=== PATIENT | male | born 1975 | race Caucasian/White ===

== ENCOUNTER 2017-03-10 13:58 | Emergency (ER) | payer SELFPAY ==
[~2017-03-10] VITALS: Ht 177.8 cm; Wt 80.0 kg
[2017-03-10 14:26] LABS: BASOPHILS % 0.6 % (0.0-2.0); EOSINOPHILS % 3.6 % (0.0-5.0); HEMATOCRIT. 40.5 % (42.0-52.0); HEMOGLOBIN. 13.6 g/dL (14.0-18.0); MEAN CORPUSCULAR HEMOGLOBIN 27.3 pg (28.0-32.0); MEAN CORPUSCULAR VOLUME 81.6 fL (80.0-94.0); MEAN PLATELET VOLUME 8.1 fl (7.4-10.4); MONOCYTES % 5.2 % (2.0-8.0); NEUTROPHILS % 38.6 % (40.0-76.0); PLATELET 151 x1000/uL (130-400); RED BLOOD CELL COUNT 4.97 mill/uL (4.7-6.1); RED CELL DISTRIBUTION WIDTH 15.9 % (11.6-14.6)
[2017-03-10 14:42] LABS: CARBON DIOXIDE 22 mEq/L (21-32); CHLORIDE 109 mEq/L (98-107)
[2017-03-10 14:58] LABS: ETHANOL BLOOD 437 mg/dL
[2017-03-10 15:05] LABS: BG BASE EXCESS -3.7 mmol/L (-2.0-2.0); BG CARBOXYHEMOGLOBIN 1.1 % (0.5-1.5); BG DEOXYHEMOGLOBIN 4.4 % (0.0-5.0); BG FRACTION INSPIRED OXYGEN 21; BG HCO3 ACT 23.3 mmol/L (22.0-26.0); BG METHEMOGLOBIN 0.1 % (0.0-1.5); BG OXYGEN SATURATION 95.5 % (92.0-98.5); BG OXYHEMOGLOBIN 94.4 % (94.0-97.0); BG PCO2 49.9 mmHg (35.0-45.0); BG PH 7.288 (7.350-7.450); BG PO2 90.2 mmHg (75.0-100.0); BG SAMPLE SITE RIGHT BRACHIAL; BG VENT MODE ROOM AIR
[2017-03-10 15:41] LABS: CLARITY URINE CLEAR (CLEAR); COLOR URINE YELLOW (YELLOW); GLUCOSE URINE NEGATIVE (NEGATIVE); KETONES URINE NEGATIVE (NEGATIVE); LEUKOCYTE ESTERASE URINE NEGATIVE (NEGATIVE); NITRITE URINE NEGATIVE (NEGATIVE); OCCULT BLOOD URINE 1+ (NEGATIVE); PROTEIN URINE NEGATIVE (NEGATIVE); SPECIFIC GRAVITY URINE 1.009 (1.005-1.030); UROBILINOGEN URINE 0.2 E.U./dL (0.2-1.0)
[2017-03-10 15:59] LABS: *AMPHETAMINES SCREEN URINE PRESUMTIVE POSITIVE (NEGATIVE); *BARBITURATES SCREEN URINE NEGATIVE (NEGATIVE); *BENZODIAZEPINES SCREEN URINE NEGATIVE (NEGATIVE); *COCAINE SCREEN URINE NEGATIVE (NEGATIVE); CANNABINOID URINE SCREEN NEGATIVE (NEGATIVE); METHADONE URINE SCREEN NEGATIVE (NEGATIVE); OPIATES URINE SCREEN NEGATIVE (NEGATIVE); PHENCYCLIDINE URINE SCREEN NEGATIVE (NEGATIVE)
[2017-03-10 17:18] VITALS: BP 104/59
== END 2017-03-10 19:37 | disposition home or self-care (01) ==
LOC: EDBD 14:05 → ER 14:05
DX: T51.0X1A Toxic effect of ethanol, accidental (unintentional), initial encounter (principal); T43.621A Poisoning by amphetamines, accidental (unintentional), initial encounter; R41.82 Altered mental status, unspecified; F91.9 Conduct disorder, unspecified; Z78.1 Physical restraint status; Y92.488 Other paved roadways as the place of occurrence of the external cause
CPT/HCPCS: 36415; 36600; 70450; 80053; 80305; 80307; 80329; 81001; 82375; 82805; 82962; 85025; 99285; G0482; A4315

== ENCOUNTER 2017-03-11 06:37 | Emergency (ER) | payer MEDICAID ==
[~2017-03-11] VITALS: Ht 172.7 cm; Wt 68.0 kg
[2017-03-11 08:17] LABS: BASOPHILS % 0.7 % (0.0-2.0); EOSINOPHILS % 2.2 % (0.0-5.0); HEMATOCRIT. 44.5 % (42.0-52.0); HEMOGLOBIN. 15.1 g/dL (14.0-18.0); MEAN CORPUSCULAR HEMOGLOBIN 27.6 pg (28.0-32.0); MEAN CORPUSCULAR VOLUME 81.4 fL (80.0-94.0); MEAN PLATELET VOLUME 8.6 fl (7.4-10.4); MONOCYTES % 5.1 % (2.0-8.0); PLATELET 171 x1000/uL (130-400); RED BLOOD CELL COUNT 5.46 mill/uL (4.7-6.1); RED CELL DISTRIBUTION WIDTH 16.2 % (11.6-14.6)
[2017-03-11 09:01] LABS: CHLORIDE 107 mEq/L (98-107)
[2017-03-11 09:06] LABS: CARBON DIOXIDE 26 mEq/L (21-32); ETHANOL BLOOD 139 mg/dL
[2017-03-11 10:55] VITALS: BP 116/76
== END 2017-03-11 10:58 | disposition home or self-care (01) ==
LOC: ER 06:37
DX: R45.851 Suicidal ideations (principal); F32.9 Major depressive disorder, single episode, unspecified
CPT/HCPCS: 36415; 80048; 85025; 99284; G0482

== ENCOUNTER 2017-09-16 04:02 | Emergency (ER) | payer MEDICAID | END 2017-09-16 05:37 | disposition left against medical advice (07) | LOC: ER 04:02 | DX: Z53.21 Procedure and treatment not carried out due to patient leaving prior to being seen by health care provider (principal) ==

== ENCOUNTER 2020-05-27 11:09 | Emergency (ER) | payer MEDICAID ==
[~2020-05-27] VITALS: Ht 185.4 cm; Wt 75.0 kg
[2020-05-27] MEDS ORDERED: ONDA4TAB5 MT (11:44)
[2020-05-27] MEDS ORDERED: ONDANSETRON 4MG ODT PO ONE (11:45)
[2020-05-27] MEDS ORDERED: LORAZEPAM 1MG TABLET PO ONE (11:45)
[2020-05-27] MEDS ORDERED: L25 PO ×3 (12:09→12:14)
[2020-05-27 12:17] VITALS: BP 121/86
== END 2020-05-27 12:22 | disposition home or self-care (01) ==
LOC: ER 11:52
DX: F15.13 Other stimulant abuse with withdrawal (principal); F15.180 Other stimulant abuse with stimulant-induced anxiety disorder; R11.0 Nausea
CPT/HCPCS: 99283; Q0162

== ENCOUNTER 2020-08-03 21:45 | Emergency (ER) | payer MEDICAID, OTHER ==
[~2020-08-03] VITALS: Ht 172.7 cm; Wt 73.0 kg
[~2020-08-03 21:45] MED LIST: L25 PO
[2020-08-03] MEDS ORDERED: LORAZEPAM 1MG TABLET PO ONE (23:15)
[2020-08-03 23:30] VITALS: BP 130/90
[2020-08-03 23:34] LABS: EOSINOPHILS % 0.4 % (0.0-5.0); HEMATOCRIT. 40.9 % (42.0-52.0); HEMOGLOBIN. 14.2 g/dL (14.0-18.0); LYMPHOCYTES % 23.8 % (20.0-50.0); MEAN CORPUSCULAR HEMOGLOBIN 28.9 pg (28.0-32.0); MEAN CORPUSCULAR VOLUME 83.1 fL (80.0-94.0); MEAN PLATELET VOLUME 8.2 fl (7.4-10.4); MONOCYTES % 7.2 % (2.0-8.0); NEUTROPHILS % 67.6 % (40.0-76.0); PLATELET 226 x1000/uL (130-400); RED BLOOD CELL COUNT 4.92 mill/uL (4.7-6.1); RED CELL DISTRIBUTION WIDTH 15.6 % (11.6-14.6)
[2020-08-03 23:39] LABS: CHLORIDE 103 mEq/L (98-107)
[2020-08-03] MEDS ORDERED: ONDANSETRON 4MG ODT PO ONE (23:45)
[2020-08-03] MEDS ORDERED: GABAPENTIN 300MG CAPSULE PO SCH (23:45)
[2020-08-04 00:44] LABS: CLARITY URINE CLEAR (CLEAR); COLOR URINE YELLOW (YELLOW); KETONES URINE NEGATIVE (NEGATIVE); LEUKOCYTE ESTERASE URINE NEGATIVE (NEGATIVE); NITRITE URINE NEGATIVE (NEGATIVE); OCCULT BLOOD URINE NEGATIVE (NEGATIVE); PROTEIN URINE NEGATIVE (NEGATIVE); SPECIFIC GRAVITY URINE 1.008 (1.005-1.030); UROBILINOGEN URINE 0.2 E.U./dL (0.2-1.0)
[2020-08-04] MEDS ORDERED: ONDA4TAB11 PO (00:48)
[2020-08-04] MEDS ORDERED: GABA-290 MT (00:48)
[2020-08-04] MEDS ORDERED: LORA-250 MT (00:48)
== END 2020-08-04 01:15 | disposition home or self-care (01) ==
LOC: ER 21:45
DX: F13.239 Sedative, hypnotic or anxiolytic dependence with withdrawal, unspecified (principal); F10.139 Alcohol abuse with withdrawal, unspecified; R00.0 Tachycardia, unspecified; Y90.9 Presence of alcohol in blood, level not specified
CPT/HCPCS: 36415; 80053; 81003; 85025; 93005; 99284; Q0162

== ENCOUNTER 2020-12-29 00:12 | Emergency (ER) | payer MEDICAID, OTHER ==
[~2020-12-29] VITALS: Ht 172.7 cm; Wt 73.0 kg
[~2020-12-29 00:12] MED LIST changes: +GABA-290 MT; +LORA-250 MT; +ONDA4TAB11 PO
[2020-12-29 00:31] VITALS: BP 149/104
[2020-12-29] MEDS ORDERED: ASPIRIN 81MG TABLET PO ONE (01:00)
[2020-12-29] MEDS ORDERED: SODIUM CHLORIDE 0.9% 1,000 ML IV ONE (01:00)
[2020-12-29 01:47] LABS: BASOPHILS % 0.8 % (0.0-2.0); EOSINOPHILS % 0.5 % (0.0-5.0); HEMATOCRIT. 39.5 % (42.0-52.0); HEMOGLOBIN. 13.4 g/dL (14.0-18.0); LYMPHOCYTES % 30.2 % (20.0-50.0); MEAN CORPUSCULAR HEMOGLOBIN 27.3 pg (28.0-32.0); MEAN CORPUSCULAR VOLUME 80.4 fL (80.0-94.0); MEAN PLATELET VOLUME 7.9 fl (7.4-10.4); MONOCYTES % 5.2 % (2.0-8.0); NEUTROPHILS % 63.3 % (40.0-76.0); PLATELET 179 x1000/uL (130-400); RED BLOOD CELL COUNT 4.91 mill/uL (4.7-6.1); RED CELL DISTRIBUTION WIDTH 16.2 % (11.6-14.6)
[2020-12-29 01:51] LABS: CHLORIDE 109 mEq/L (98-107)
[2020-12-29 01:55] LABS: ETHANOL BLOOD 156 mg/dL
[2020-12-29 01:57] LABS: D-DIMER 0.24 mg/L FEU (<0.50); PARTIAL THROMBOPLASTIN TIME 24.1 sec (23.4-31.0); PROTHROMBIN TIME 10.4 sec (9.6-11.0)
[2020-12-29] MEDS ORDERED: ASPIRIN 325MG TABLET PO NR (02:00)
[2020-12-29 03:54] LABS: CLARITY URINE CLEAR (CLEAR); COLOR URINE YELLOW (YELLOW); KETONES URINE NEGATIVE (NEGATIVE); LEUKOCYTE ESTERASE URINE NEGATIVE (NEGATIVE); NITRITE URINE NEGATIVE (NEGATIVE); OCCULT BLOOD URINE NEGATIVE (NEGATIVE); PROTEIN URINE NEGATIVE (NEGATIVE); UROBILINOGEN URINE 0.2 E.U./dL (0.2-1.0)
[2020-12-29 04:04] LABS: *AMPHETAMINES SCREEN URINE PRESUMTIVE POSITIVE (NEGATIVE); *BARBITURATES SCREEN URINE NEGATIVE (NEGATIVE); *BENZODIAZEPINES SCREEN URINE NEGATIVE (NEGATIVE); *COCAINE SCREEN URINE NEGATIVE (NEGATIVE); METHADONE URINE SCREEN NEGATIVE (NEGATIVE); OPIATES URINE SCREEN NEGATIVE (NEGATIVE)
[2020-12-29 04:06] LABS: CANNABINOID URINE SCREEN NEGATIVE (NEGATIVE); PHENCYCLIDINE URINE SCREEN NEGATIVE (NEGATIVE)
== END 2020-12-29 04:33 | disposition home or self-care (01) ==
LOC: ER 00:37
DX: R07.89 Other chest pain (principal); R20.0 Anesthesia of skin; F10.10 Alcohol abuse, uncomplicated; F17.200 Nicotine dependence, unspecified, uncomplicated; F15.10 Other stimulant abuse, uncomplicated; F13.10 Sedative, hypnotic or anxiolytic abuse, uncomplicated; I10 Essential (primary) hypertension; Z86.73 Personal history of transient ischemic attack (TIA), and cerebral infarction without residual deficits; Z86.59 Personal history of other mental and behavioral disorders; Y90.6 Blood alcohol level of 120-199 mg/100 ml
CPT/HCPCS: 36415; 71045; 80053; 80305; 80320; 81003; 83690; 83880; 84484; 85025; 85379; 85610; 85730; 93005; 96360; 96361; 99285; J7030; G0480

== ENCOUNTER 2021-06-28 14:21 | Emergency (ER) | payer MEDICAID, OTHER ==
[~2021-06-28] VITALS: Ht 175.3 cm; Wt 75.0 kg
[2021-06-28 14:25] VITALS: BP 129/89
[2021-06-28] MEDS ORDERED: HYDR-3735 MT (14:44)
[2021-06-28] MEDS ORDERED: HYDROXYZINE 25MG TABLET PO ONE (14:45)
[2021-06-28] MEDS ORDERED: ONDANSETRON 4MG ODT PO ONE (14:45)
== END 2021-06-28 16:41 | disposition left against medical advice (07) ==
LOC: ER 14:21
DX: F15.23 Other stimulant dependence with withdrawal (principal)
CPT/HCPCS: 99283; Q0162

== ENCOUNTER 2021-06-28 18:19 | Emergency (ER) | payer MEDICAID ==
[~2021-06-28 18:19] MED LIST changes: +HYDR-3735 MT
== END 2021-06-28 20:29 | disposition left against medical advice (07) ==
LOC: ER 18:19
DX: Z53.21 Procedure and treatment not carried out due to patient leaving prior to being seen by health care provider (principal)

== ENCOUNTER 2022-01-27 23:50 | Emergency (ER) | payer MEDICAID ==
[~2022-01-27] VITALS: Ht 172.7 cm; Wt 73.6 kg
[2022-01-28] MEDS ORDERED: HYDROXYZINE 25MG TABLET PO ONE (01:15)
[2022-01-28] MEDS ORDERED: IBUPROFEN 600MG TABLET PO ONE (01:30)
[2022-01-28] MEDS ORDERED: HYDROXYZINE 25MG TABLET PO NR (02:15)
[2022-01-28] MEDS ORDERED: IBUPROFEN 600MG TABLET PO NR (02:15)
[2022-01-28 02:19] LABS: BASOPHILS % 1.1 % (0.0-2.0); EOSINOPHILS % 1.6 % (0.0-5.0); HEMATOCRIT. 38.9 % (42.0-52.0); HEMOGLOBIN. 13.2 g/dL (14.0-18.0); LYMPHOCYTES % 28.6 % (20.0-50.0); MEAN CORPUSCULAR HEMOGLOBIN 27.5 pg (28.0-32.0); MEAN CORPUSCULAR VOLUME 80.8 fL (80.0-94.0); MEAN PLATELET VOLUME 8.5 fl (7.4-10.4); MONOCYTES % 11.3 % (2.0-8.0); NEUTROPHILS % 57.4 % (40.0-76.0); PLATELET 210 x1000/uL (130-400); RED BLOOD CELL COUNT 4.82 mill/uL (4.7-6.1); RED CELL DISTRIBUTION WIDTH 16.1 % (11.6-14.6)
[2022-01-28 02:31] LABS: CHLORIDE 104 mEq/L (98-107)
[2022-01-28 02:38] LABS: ETHANOL BLOOD 57 mg/dL
[2022-01-28 04:00] VITALS: BP 130/82
== END 2022-01-28 05:04 | disposition left against medical advice (07) ==
LOC: ER 23:50 → CANBEDREQ 01-28 18:01
DX: F11.23 Opioid dependence with withdrawal (principal); G40.909 Epilepsy, unspecified, not intractable, without status epilepticus; F15.10 Other stimulant abuse, uncomplicated; F10.129 Alcohol abuse with intoxication, unspecified; Y90.2 Blood alcohol level of 40-59 mg/100 ml
CPT/HCPCS: 36415; 80053; 80320; 85025; 93005; 99284; G0480

== ENCOUNTER 2022-07-31 20:18 | Emergency (ER) | payer MEDICAID, OTHER ==
[~2022-07-31] VITALS: Ht 172.7 cm; Wt 72.0 kg
[2022-07-31 20:25] VITALS: BP 135/91
== END 2022-08-01 03:04 | disposition home or self-care (01) ==
LOC: ER 20:18
DX: R56.9 Unspecified convulsions (principal); R51.9 Headache, unspecified; F15.10 Other stimulant abuse, uncomplicated
CPT/HCPCS: 99281

== ENCOUNTER 2023-03-02 04:12 | Emergency (ER) | payer MEDICAID, OTHER ==
[~2023-03-02] VITALS: Ht 172.7 cm; Wt 78.0 kg
[~2023-03-02 04:12] MED LIST changes: +ACET-2708 MT; +ISOP30DR11 OT; +NALO4SPR BOTHNSTRLS
[2023-03-02 04:16] VITALS: O2SAT 100
[2023-03-02 04:59] LABS: BASOPHILS % 0.9 % (0.0-2.0); EOSINOPHILS % 0.8 % (0.0-5.0); HEMATOCRIT. 40.3 % (42.0-52.0); HEMOGLOBIN. 12.9 g/dL (14.0-18.0); LYMPHOCYTES % 27.7 % (20.0-50.0); MEAN CORPUSCULAR HEMOGLOBIN 26.6 pg (28.0-32.0); MEAN CORPUSCULAR VOLUME 83.2 fL (80.0-94.0); MEAN PLATELET VOLUME 8.9 fl (7.4-10.4); MONOCYTES % 9.4 % (2.0-8.0); NEUTROPHILS % 61.2 % (40.0-76.0); PLATELET 225 x1000/uL (130-400); RED BLOOD CELL COUNT 4.84 mill/uL (4.7-6.1); RED CELL DISTRIBUTION WIDTH 16.4 % (11.6-14.6); WHITE BLOOD COUNT 6.4 x1000/uL (4.5-11.0)
[2023-03-02 05:10] LABS: CHLORIDE 110 mEq/L (98-107); POTASSIUM 4.1 mEq/L (3.5-5.1); SODIUM 141 mEq/L (136-145)
[2023-03-02 05:16] LABS: ACETAMINOPHEN <2 ug/mL ug/mL (10-30); ALANINE AMINOTRANSFERASE 36 IU/L (13-61); ALBUMIN 3.6 g/dL (3.4-5.0); ASPARTATE AMINOTRANSFERASE 28 IU/L (15-37); BILIRUBIN TOTAL 0.3 mg/dL (0.1-1.0); CALCIUM 8.1 mg/dL (8.5-10.1); CARBON DIOXIDE 25 mEq/L (21-32); CREATININE 0.6 mg/dL (0.6-1.3); ETHANOL BLOOD 187 mg/dL (<10); GLUCOSE 100 mg/dL (70-105); UREA NITROGEN BLOOD 14 mg/dL (7-21)
[2023-03-02] MEDS ORDERED: LORAZEPAM 2MG/ML CPJ IV ONE (05:30)
[2023-03-02] MEDS ORDERED: LORAZEPAM 2MG/ML CPJ IV NR (10:15)
[2023-03-02 11:12] LABS: CLARITY URINE CLEAR (CLEAR); COLOR URINE YELLOW (YELLOW); GLUCOSE URINE NEGATIVE (NEGATIVE); KETONES URINE NEGATIVE (NEGATIVE); LEUKOCYTE ESTERASE URINE NEGATIVE (NEGATIVE); NITRITE URINE NEGATIVE (NEGATIVE); OCCULT BLOOD URINE NEGATIVE (NEGATIVE); PH URINE >=9.0 (4.5-8.0); PROTEIN URINE 1+ (NEGATIVE); SPECIFIC GRAVITY URINE 1.025 (1.005-1.030)
[2023-03-02 11:15] LABS: BACTERIA URINE NONE SEEN; RBC URINE NONE SEEN /hpf (0-2); SQUAMOUS EPITHELIAL CELL URINE NONE SEEN /lpf (RARE/1+); WBC URINE NONE SEEN /hpf (0-2); YEAST URINE NONE SEEN
[2023-03-02 11:29] LABS: MUCUS URINE 1+ /lpf (NONE/TRACE)
[2023-03-02 11:58] LABS: *AMPHETAMINES SCREEN URINE NEGATIVE (NEGATIVE); *BARBITURATES SCREEN URINE NEGATIVE (NEGATIVE); *BENZODIAZEPINES SCREEN URINE NEGATIVE (NEGATIVE); *COCAINE SCREEN URINE NEGATIVE (NEGATIVE); CANNABINOID URINE SCREEN NEGATIVE (NEGATIVE); ECSTASY MDMA SCREEN URINE NEGATIVE (NEGATIVE); METHADONE URINE SCREEN NEGATIVE (NEGATIVE); OPIATES URINE SCREEN NEGATIVE (NEGATIVE); PHENCYCLIDINE URINE SCREEN NEGATIVE (NEGATIVE)
[2023-03-02] MEDS ORDERED: OLANZAPINE 5MG TABLET PO STA (14:22)
[2023-03-02 17:28] VITALS: BP 133/78; PULSE 66; RESP 18; TEMP 99.3
== END 2023-03-02 17:44 ==
LOC: ER 04:20 → SUPCPDRO 10:39 → ER 17:44
DX: R45.851 Suicidal ideations (principal); F20.9 Schizophrenia, unspecified; F15.90 Other stimulant use, unspecified, uncomplicated; F19.90 Other psychoactive substance use, unspecified, uncomplicated; Z98.890 Other specified postprocedural states
CPT/HCPCS: 80053; 80305; 81003; 80307; 80329; 80320; 85025; 36415; 93005; 96374; 99284; 87426; J2060; C9803; Z7610; G0480